=== PATIENT | female | born 2000 | race Caucasian/White ===

== ENCOUNTER 2023-09-23 08:00 | Outpatient (CLI) | payer OTHER ==
[2023-09-23 18:55] LABS: BILIRUBIN,URINE NEGATIVE (NEGATIVE); GLUCOSE, URINE (UA) NEGATIVE (NEGATIVE); KETONES,URINE (UA) TRACE mg/dL (NEGATIVE); LEUKOCYTE ESTERASE, URINE NEGATIVE (NEGATIVE); NITRITE,URINE NEGATIVE (NEGATIVE); OCCULT BLOOD,URINE NEGATIVE (NEGATIVE); PROTEIN,URINE NEGATIVE (NEGATIVE); UROBILINOGEN,URINE 0.2 (NORMAL) E.U./dL (NORMAL)
[2023-09-23 18:59] LABS: CLARITY,URINE CLEAR (CLEAR)
[2023-09-23 19:16] LABS: BACTERIA,URINE Few /HPF (None Seen); RBC,URINE None Seen /HPF (0-5); SQUAMOUS EPITHELIAL CELL,UR FEW Squamous (<= Few); WBC,URINE 0-3 /HPF (0-5)
== END 2023-09-23 23:59 | disposition home or self-care (01) ==
LOC: LAB.WC 08:00
PROVIDERS: ATTEND Obstetrics & Gynecology
DX: Z34.00 Encounter for supervision of normal first pregnancy, unspecified trimester (principal)
CPT/HCPCS: 81001; 87086

== ENCOUNTER 2023-10-15 13:11 | Outpatient (CLI) | payer OTHER ==
--- NOTE | 2023-10-15 22:33 | Ultrasound Report ---
PROCEDURE: OB 1st Trimester INDICATIONS: POSITIVE TEST OUTSIDE/PRIOR DATING DATA: Last menstrual period (LMP): 08/08/2023. LMP-based estimated date of delivery (ABNER): 05/14/2024. First dating scan (date and location): 10/15/2023. Estimated date of delivery (ABNER) from first dating scan: 05/18/2024. TECHNIQUE: Real-time scanning was performed of the fetus and maternal pelvic organs, with image documentation. COMPARISON: None. FINDINGS: Intrauterine gestational sac present. Embryo: Single living intrauterine gestation with estimated sonographic gestational age of approxima tely 9 weeks and 1 day based off crown-rump length measurement of approximately 2.41 cm. Heart rate: 178 bpm. Other: No perigestational fluid collection. Normal yolk sac. Measurement variability in dating: +/- 4 weeks by LMP, +/- 7 days by mean sac diameter (use before 6 weeks gestation if crown-rump length not able to be measured), +/- 5 days by crown-rump length (6-12 weeks gestation). Maternal organs: Ovaries appear within normal limits. IMPRESSION: Single living intrauterine gestation with estimated sonographic gestational age of approximately 9 we eks and 1 day based off crown-rump length measurement. Estimated date of delivery is approximately 05/18/2024. Reviewed by: Steve Chou MD on 10/15/2023 10:32 PM PDT Approved by: Steve Chou MD on 10/15/2023 10:32 PM PDT Station ID: [id number]
== END 2023-10-15 13:12 | disposition home or self-care (01) ==
LOC: DI 13:11
PROVIDERS: ATTEND Obstetrics & Gynecology
DX: Z34.01 Encounter for supervision of normal first pregnancy, first trimester (principal)

== ENCOUNTER 2023-10-21 08:00 | Outpatient (CLI) | payer OTHER ==
[2023-10-21 20:51] LABS: CHLAMYDIA TRACHOMATIS DNA NEGATIVE (NEGATIVE); NEISSERIA GONORRHOEAE DNA NEGATIVE (NEGATIVE); TRICHOMONAS VAGINALIS DNA NEGATIVE (NEGATIVE)
== END 2023-10-21 23:59 | disposition home or self-care (01) ==
LOC: LAB.WC 08:00
PROVIDERS: ATTEND Obstetrics & Gynecology
DX: Z11.3 Encounter for screening for infections with a predominantly sexual mode of transmission (principal)
CPT/HCPCS: 87491; 87591; 87661

== ENCOUNTER 2023-11-09 08:23 | Outpatient (CLI) | payer OTHER ==
[2023-11-09 12:21] LABS: BASOPHILS # (AUTO) 0.1 10^3/uL (0.0-0.1); BASOPHILS % (AUTO) 0.8 %; EOSINOPHILS # (AUTO) 0.1 10^3/uL (0.0-0.7); EOSINOPHILS % (AUTO) 1.4 %; HCT - HEMATOCRIT 39.2 % (37.0-47.0); HGB - HEMOGLOBIN 13.4 g/dL (12.0-16.0); LYMPHOCYTES % (AUTO) 28.5 %; MEAN CORPUSCULAR HEMOGLOBIN 29.5 pg (27.0-31.0); MEAN CORPUSCULAR HGB CONC 34.2 g/dL (32.0-36.0); MEAN CORPUSCULAR VOLUME 86.3 fL (81.0-99.0); MONOCYTES # (AUTO) 0.5 10^3/uL (0.0-1.0); NEUTROPHILS # (AUTO) 4.4 10^3/uL (1.5-6.6); PLT - PLATELET COUNT 238 10^3/uL (130-450); RED BLOOD COUNT 4.54 10^6/uL (4.20-5.40); RED CELL DISTRIBUTION WIDTH 13.2 % (12.0-15.0); WHITE BLOOD COUNT 7.1 x10^3/uL (4.8-10.8)
[2023-11-10 01:08] LABS: HIV SCREEN 4TH GENERATION Non Reactive (Non Reactive)
[2023-11-10 04:11] LABS: HBsAG SCREEN Negative (Negative); RPR Non Reactive (Non Reactive)
[2023-11-10 12:10] LABS: VARICELLA-ZOSTER AB IGG 1042 index (Immune >165)
== END 2023-11-09 08:24 | disposition home or self-care (01) ==
LOC: LAB.N 08:23
PROVIDERS: ATTEND Obstetrics & Gynecology
DX: Z34.00 Encounter for supervision of normal first pregnancy, unspecified trimester (principal); Z36.89 Encounter for other specified antenatal screening
CPT/HCPCS: 36415; 85025; 86592; 86762; 86787; 86803; 86850; 86900; 86901; 87340; 87389

== ENCOUNTER 2023-12-04 08:32 | Outpatient (CLI) | payer OTHER ==
[2023-12-07 15:09] LABS: AFP MOM 0.86 (.); AFP VALUE 27.5 ng/mL (.); DIA MOM 0.67 (.); DIA VALUE 94.02 pg/mL (.); DSR (BY AGE) 1 IN 1116 (.); DSR (SECOND TRIMESTER) 1 IN 10000 (.); GEST. AGE ON COLLECTION DATE 16.4 WEEKS (.); HCG MOM 0.49 (.); HCG VALUE 16105 mIU/mL (.); INSULIN DEP DIABETES No (.); MATERNAL AGE AT EDD 22.5 yr (.); MULTIPLE GESTATION No (.); OPEN SPINA BIFIDA RISK 1 IN 10000 (.); RACE Caucasian (.); RESULTS Report (.); TEST RESULTS *Screen Negative* (.); TRISOMY 18 RISK Not increased (.); WEIGHT 176 lbs (.)
== END 2023-12-04 08:33 | disposition home or self-care (01) ==
LOC: LAB.N 08:32
PROVIDERS: ATTEND Obstetrics & Gynecology
DX: Z36.89 Encounter for other specified antenatal screening (principal)
CPT/HCPCS: 36415; 81511

== ENCOUNTER 2023-12-28 09:27 | Outpatient (CLI) | payer OTHER ==
--- NOTE | 2023-12-28 14:53 | Ultrasound Report ---
PROCEDURE: OB Anatomy Scan INDICATIONS: SUPERVISION OF OUTSIDE/PRIOR DATING DATA: Last menstrual period (LMP): 08/08/2023. LMP-based estimated date of delivery (ABNER): 05/14/2024. First dating scan (date and location): 10/15/2023. Estimated date of delivery (ABNER) from first dating scan: 05/18/2024. The below data below was generated using the ultrasound ABNER of 05/18/2024 TECHNIQUE: Real-time scanning was performed of the fetus, with image documentation and biometric measurements. Endovaginal scanning: Not performed. COMPARISON: 10/15/2023 FINDINGS: General: A single living intrauterine gestation is present. Presentation: Vertex Placenta: Placental position is anterior, without previa. Amniotic fluid index: 13.6 cm, within normal limits for gestational age. heart rate: 153 beats per minute. Maternal cervical canal: 3.9 cm long; normal length is 2.5 cm or more. biometrics: Biparietal diameter: 4.7 cm, 20 weeks 1 day, 67% Head circumference: 16.9 cm, 19 weeks 4 days, 33% Abdominal circumference: 14.2 cm, 19 weeks 4 days, 40% Femur length: 3.1 cm, 19 weeks 5 days, 41% Estimated gestational age from initial scan: 19 weeks 5 days Composite gestational age from present scan: 19 weeks 4 days Estimated weight and percentile: 304 g, 41% Measurement variability in biometric dating: +/- 10 days from 12-20 weeks gestation, +/- 2 weeks from 20-30 weeks gestation, +/- 3 weeks at 30 weeks gestation or later. Anatomic survey: Neuro: Ventricles are normal at less than 10 mm. Cisterna magna is normal at 3-11 mm. Cerebellum i s normal in size and morphology. Nuchal skin fold: Normal at less than 6 mm between 14 and 20 weeks gestational age. Face: Nose and lips, facial profile are normal. Spine: No evidence for spina bifida. Heart: 4-chambered heart is present, with normal ventricular outflow tracts. Diaphragm: Diaphragm is intact. Stomach: Left-sided stomach is present. Kidneys: No hydronephrosis. Normal is less than 5 mm in 2nd trimester, less than 7 mm in 3rd trimester. Cord: 3 vessel cord has orthotopic insertion. Bladder: Normal in size. Extremities: All 4 extremities are visualized. IMPRESSION: 1.Single live intrauterine consistent with 19 weeks and 4 days. 2.Normal anatomic survey. Reviewed by: Joey Uriarte MD on 12/28/2023 2:51 PM PDT Approved by: Joey Uriarte MD on 12/28/2023 2:51 PM PDT Station ID: [id number]
== END 2023-12-28 09:28 | disposition home or self-care (01) ==
LOC: DI 09:27
PROVIDERS: ATTEND Obstetrics & Gynecology
DX: Z34.02 Encounter for supervision of normal first pregnancy, second trimester (principal)

== ENCOUNTER 2024-05-15 07:54 | Inpatient (IN) ==
[2024-05-15] MEDS ORDERED: lidocaine 1% 20 ML MDV ID PRN (08:06)
[2024-05-15] MEDS ORDERED: OXYTOCIN/SODIUM CHLORIDE 500 ML IV PRN (08:06)
[2024-05-15] MEDS ORDERED: miSOPROStoL 200 MCG TABLET BC PRN (08:06)
[2024-05-15] MEDS ORDERED: miSOPROStoL 200 MCG TABLET PR PRN (08:06)
[2024-05-15] MEDS ORDERED: ACETAMINOPHEN 500 MG TABLET PO PRN (08:06)
[2024-05-15] MEDS ORDERED: SODIUM CHLORIDE FLUSH 0.9% 10 ML SYRINGE IVP PRN (08:06)
[2024-05-15] MEDS ORDERED: TERBUTALINE 1 MG/ML VIAL SUBQ PRN (08:06)
[2024-05-15] MEDS ORDERED: METHYLERGONOVINE 0.2 MG/ML VIAL IM PRN (08:06)
[2024-05-15] MEDS ORDERED: hydrALAZINE INJ 20 MG/ML VIAL IVP PRN (08:06)
[2024-05-15] MEDS ORDERED: TRANEXAMIC ACID IN NACL 1,000 MG/100 ML BAG IV PRN (08:06)
[2024-05-15] MEDS ORDERED: OXYTOCIN 10 UNIT/ML VIAL IM PRN (08:06)
[2024-05-15] MEDS ORDERED: LABETALOL 20 MG/4 ML SYRINGE IVP PRN ×3 (08:06)
[2024-05-15] MEDS ORDERED: NIFEdipine 10 MG CAPSULE PO PRN (08:06)
[2024-05-15 08:37] LABS: BASOPHILS # (AUTO) 0.1 10^3/uL (0.0-0.1); BASOPHILS % (AUTO) 0.5 %; EOSINOPHILS # (AUTO) 0.1 10^3/uL (0.0-0.7); EOSINOPHILS % (AUTO) 0.8 %; HCT - HEMATOCRIT 35.3 % (37.0-47.0); HGB - HEMOGLOBIN 11.7 g/dL (12.0-16.0); LYMPHOCYTES # (AUTO) 2.9 10^3/uL (1.5-3.5); LYMPHOCYTES % (AUTO) 23.8 %; MEAN CORPUSCULAR HEMOGLOBIN 28.5 pg (27.0-31.0); MEAN CORPUSCULAR HGB CONC 33.1 g/dL (32.0-36.0); MEAN CORPUSCULAR VOLUME 85.9 fL (81.0-99.0); MONOCYTES # (AUTO) 1.1 10^3/uL (0.0-1.0); MONOCYTES % (AUTO) 8.6 %; NEUTROPHILS # (AUTO) 8.1 10^3/uL (1.5-6.6); NEUTROPHILS % (AUTO) 65.9 %; PLT - PLATELET COUNT 226 10^3/uL (130-450); RED BLOOD COUNT 4.11 10^6/uL (4.20-5.40); RED CELL DISTRIBUTION WIDTH 13.2 % (12.0-15.0); WHITE BLOOD COUNT 12.3 x10^3/uL (4.8-10.8)
[2024-05-15] MEDS ORDERED: SODIUM CHLORIDE FLUSH 0.9% 10 ML SYRINGE IVP SCH (09:00)
[2024-05-15] MEDS: LACTATED RINGERS 1,000 ML IV PRN (09:23)
[2024-05-15] MEDS: OXYTOCIN/SODIUM CHLORIDE 500 ML IV SCH (09:24)
--- NOTE | 2024-05-15 09:24 | HISTORY & PHYSICAL EXAMINATION ---
Admit History Smoking Status: Never smoker Other Maternal History Other Maternal History: HPI: Patient is a 23-year-old at 40 weeks 1 day gestation admitted for induction of labor at term.. She has good movement. Denies loss of fluid. No LOCKETT/BV or RUQP. No vaginal bleeding. Denies nausea and vomiting. Denies urinary urgency or dysuria. All other symptoms reviewed and were negative except per HPI. Course LMP: 08/08/2023 ABNER by LMP: 05/14/2024 US:10/15/23@ 9+6 ABNER by US 05/18/24 Final ABNER: 05/14/24 FOB [facility] in [employer]. . both from [place], [place]. 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 Gabby's mom coming on 05/11 with all of her siblings to be here around delivery (staying in [facility] until Jun 01) H/o anomaly - medical termination with 2nd , reports hydrocephalus was told baby would likely have cardiac anomaly. They did not remember what results of genetic testing revealed. Reports seeing genetic counselor and was told is was a random event without increased risk for next . - Records reviewed 12/15, early US with cystic hygroma, bilateral pleural effusions, and suspected atrioventricular septal defect. Declined diagnostic testing and underwent termination. 01/21/24 - rash on face 23 weeks labs ordered to check for Parvo with 28 week labs. IgM (1 week to 3 m) and IgG (2 weeks to forever) will both be positive if new infection. Lab didn't draw with 28wk labs, given order form on 03/07 so she can go to lab. H/o anxiety/dep/ADHD - no meds, doing well at first visit. Pre- Weight: 182 BMI: 28.41 Blood type: A+ Antibody: Negative CBC: H/H 13.4/39.2 plt 238 RUB:immune VZV:immune HBsAg: Negative HepC: NR RPR/AB-EIA: NR HIV: NR PAP:07/09/2023 Normal per pt GC/CT: Negative HSV: denies Genetic testing: quad neg Covid:vaccinated Flu: 02/18/24 FAS: Placenta: Anterior w/o previa Cord:3VC ANGEL:13.6 WNL EFW:304g 41st%ile 50gm OGCT: 124 TDAP: 02/17 Breast Pump: 02/17 RPR- NR 3rd trimester H/H 12.3/36.1 PLT 250 3rd trimester HIV GBS: collected 04/22 Contraception: copper IUD at 6wk visit HPI Current : Vital Signs Temperature 36.8 C 05/15/24 08:12 Pulse Rate 113 H 05/15/24 08:12 Respiratory Rate 16 05/15/24 08:12 Blood Pressure 137/89 H 05/15/24 08:12 O2 Saturation 96 05/15/24 08:12 Meds/Allgy Home Medications Ambulatory Orders Medication Instructions Recorded Confirmed prenat.vits,guillermina,wgc-lwae-tsgrs tab PO 02/23/24 05/13/24 Allergies Allergies Allergy/AdvReac Type Severity Reaction Status Date / Time No Known Drug Allergies Allergy Verified 04/27/24 13:34 PFSH Medical History Medical History (Updated 05/15/24 @ 09:21 by Peter Saha MD) Plantar wart, left foot (10/14/23) Surgical History Surgical History (Updated 02/23/24 @ 15:25 by Radha Feng MA) History of laparoscopy Ruptured ovarian cyst (2019) Family History Family History (Updated 04/06/24 @ 20:45 by Jordyn Duggan MD) Grandmother Ovarian cancer Sister Asthma Mental disorder Grandfather Diabetes Mother Mental disorder Father Mental disorder Alcoholism Social History Social History (Updated 02/23/24 @ 17:08 by Jordyn Duggan MD) Smoking Status: Never smoker Do you dip or chew tobacco?: No Do you vape?: No Living arrangement: At home Marital Status: Living Condition: With spouse/s.o. Support Person: Yes Relationship: Spouse Level: Independent ETOH Use: None Substance Use: denies use Are you sexually active?: Yes Control Method: None Physical Abdominal Exam Vital Signs: Temp Pulse Resp BP Pulse Ox 36.8 C 113 H 16 137/89 H 96 05/15/24 08:12 05/15/24 08:12 05/15/24 08:12 05/15/24 08:12 05/15/24 08:12 Vaginal Exam Dilation (in cm): 3 Effacement (%): 70 Station: positive -2 Other Notes Labor Progress Note/Additional Text: General: Alert, oriented, no acute distress Head: Normal cephalic atraumatic Eyes: PERRLA, extraocular motions intact. Respiratory: Normal rate of respiration. No accessory muscle use, normal respiratory effort. Cardiovascular: Regular rate and rhythm Abdomen: Gravid, nontender, nondistended Extremities: Normal range of motion Neuro: Oriented x3. Normal movements Psych: Appropriate mood and affect. Normal judgment and insight SVE: 3/70/-2 FHT: 140 beats per baseline, moderate variability, accelerations present, no decelerations. Category 1. [place]: Irregular Plan for Labor Plan For Labor I expect patient to be DC'd or transferred within 96 hours.: Yes Conclusion/Plan Problem List (1) Encounter for induction of labor: Plan: Admit to L&D, admit labs, epidural at patient's request. Cervix favorable with a Means score of 7. Will start oxytocin for induction. Membranes swept at time of exam. Anticipate amniotomy. Anticipate . Counseled on the risk, benefits, alternatives of induction of labor. (2) 40 weeks gestation of : (3) Supervision of normal first in third trimester: Lab Results 05/15/24 08:20
--- NOTE | 2024-05-15 12:11 | PHARMACY PROGRESS NOTE ---
Best Possible Medication History Admit Date and Time: 05/15/24 [id number] Home Medications Medication Instructions Recorded Confirmed Type prenat.vits,guillermina,oyy-ugax-soxgr 1 tab PO DAILY 02/23/24 05/15/24 History Processed by: Nursing (Called and spoke with nursing staff, as only prenatals pulling in on insurance record. Nursing confirmed that patient is only taking vitamins at home.) Medications reviewed in ED?: No Medication History completed: Yes Secondary Source(s): Insurance records [facility] Statement: As the person ultimately responsible for medication therapy, providers are able to order a medication from an existing home medication list in [facility] via the "Reconcile Routine" prior to Confirmation of that medication by technical support analyst. Such practice is discouraged except when the physician, in their clinical judgment, deems that a medical need exists for a medication without regard to previous use.
--- NOTE | 2024-05-15 14:16 | PROVIDER PROGRESS NOTE ---
Labor Progress Note Uterine Monitoring Uterine Monitoring Mode: positive External toco Contraction Frequency (min/apart): 2 Contraction Intensity: positive Mild to moderate Monitoring Monitor Mode: positive External ultrasound Heart Rate Baseline: 125 Heart Rate Variability: positive Moderate (6-25 bmp) Accelerations: positive Present, 15x15 Decelerations: positive None Strip Review: positive Category I Vaginal Exam Dilation (in cm): 4 Effacement (%): 70 Station: -2 Cervical Position: Midposition Labor Progress Note Labor Progress Note/Additional Text: Discussed amniotomy and patient consents. Performed easily with a moderate amount of clear fluid. Patient and fetus tolerated well. Will continue oxytocin augmentation at this time.
[2024-05-15] MEDS: fentaNYL 100 MCG/2 ML VIAL IVP PRN (17:55)
[2024-05-15] MEDS ORDERED: WITCH HAZEL/GLYCERIN 1 PAD TOP PRN (19:14)
[2024-05-15] MEDS ORDERED: CALCIUM CARBONATE CHEW 500 MG TABLET PO PRN (19:14)
[2024-05-15] MEDS ORDERED: SIMETHICONE CHEW 80 MG TABLET PO PRN (19:14)
[2024-05-15] MEDS ORDERED: ONDANSETRON 4 MG/2 ML VIAL IVP PRN (19:14)
--- NOTE | 2024-05-15 19:17 | DELIVERY NOTE ---
Delivery Note Labor Labor: positive Induced by oxytocin Infant Delivery Method Delivery Method: positive Spontaneous vaginal delivery Presentation Presentation: positive Vertex Nuchal Cord Nuchal Cord: positive Present and Reduced Amniotic Fluid Description Amniotic Fluid Description: positive Clear Laceration Laceration: positive 1st degree and Labial (Right) Delivery Outcome Delivery Date: 05/15/24 Delivery Time: 07:02 Delivery Outcome: positive Livebirth Makinen: positive Placed in direct skin contact with mother Makinen sex: positive Male Cord Cord: positive 3 vessels Placenta Placenta: positive Intact Estimated Blood Loss Estimated Blood Loss (in cc): 150 Post Delivery Events Post Delivery Events: positive No post delivery events Delivery Comments (Free Text/Narrative) Delivery Comments (Free Text/Narrative): Preoperative Diagnoses 40 weeks gestation Induction of labor Postoperative Diagnoses Same Status post spontaneous vaginal delivery Delivery of live lamb Summary Patient was admitted at 40 weeks 1 day gestation for induction of labor. Her cervix was favorable and was started on oxytocin for induction. She progressed to 4 cm had amniotomy performed with clear fluid. She used nitrous oxide intermittently for labor, but otherwise unmedicated. She progressed quickly in the active labor stage until complete and pushing. Delivery Summary: Patient was placed in the dorsal right position. Upon maternal pushing the head was delivered atraumatically followed by the anterior shoulder, posterior shoulder, then the remainder of the 's body. Nuchal cord was reduced. A male infant was delivered with APGARS of 8 at 1 minute and 9 at 5 minutes. The infant was placed on its mother's chest . After the cord finished pulsating, the umbilical cord was clamped times two and cut. The placenta delivered intact with three vessel cord. Placenta was not sent to pathology. Thirty units of Pitocin were added to the IV fluid and allowed to run freely. Uterine massage was performed until uterus was deemed firm. Upon inspection of the perineum, a right labial laceration and a small first- degree laceration were noted. These were hemostatic and does not require sutures. Upon re-inspection the patient was hemostatic. Uterus again massaged and found to be firm. Needle and sponge counts were correct. Patient was stable and allowed to recover in L&D room. Infant was stable and remained in room with mother. weight is pending at this time.
[2024-05-15] MEDS ORDERED: LACTATED RINGERS 1,000 ML IV SCH (20:00)
[2024-05-16] MEDS: IBUPROFEN 600 MG TABLET PO SCH (00:10)
[2024-05-16] MEDS: ACETAMINOPHEN 500 MG TABLET PO SCH (00:11)
[2024-05-16 08:57] VITALS: O2SAT 98
--- NOTE | 2024-05-16 11:24 | Discharge Summary ---
Discharge Summary Admit Date: 05/15/24 Discharge Date: 05/16/24 Discharging Provider: Valeria Nickerson MD [facility] History of Present Illness: Admission Diagnosis: - SIUP at 40w1d - H/o anxiety/depression/ADHD - Rh + - Rubella immune - Varicella immune Discharge Diagnosis: - Same, delivered Procedures: , 150cc Hospital Course: Gabby presented for elective IOL at 40w1d. She underwent pitocin augmentation followed by AROM and had an uncomplicated . course uncomplicated. Condition on Discharge: SUBJECTIVE: She feels WELL. Pain is WELL controlled with current medications. The baby is doing well. Baby is feeding via . She is ambulating well, tolerating normal diet, urinating without difficulty. Lochia is reported as like a period. OBJECTIVE: Vital signs reviewed GENERAL: NAD CHEST: non labored respirations ABD: soft, non tender, fundus firm EXT: no lower extremity edema; No evidence of DVT LAB & IMAGING STUDIES: See below PLAN: Plan for discharge home with follow up in 1 week, OK for virtual visit if she desires. Reviewed home care instructions and medications. Patient counseled regarding signs and symptoms of infection, excessive bleeding, vaginal rest and activity restrictions. Contraceptive plans to be formalized at visit, currently planning for Paragard IUD at 6wk visit. Discussed that additional support is available in our clinic if needed. ALLERGIES Allergies Allergy/AdvReac Type Severity Reaction Status Date / Time No Known Drug Allergies Allergy Verified 04/27/24 13:34 MEDICATIONS Ambulatory Orders Medication Instructions Recorded Confirmed prenat.vits,guillermina,xqb-vhbt-mwsrd 1 tab PO DAILY 02/23/24 05/15/24 LABS 05/15/24 08:20 TIME SPENT Time Spent in Discharge (Minutes): 20 Discharge Plan Discharge Patient Disposition: Home, Self Care Prescriptions: Continued prenat.vits,guillermina,zoj-taee-qiqlo Tablet 1 tab PO DAILY Print Language: Guinean Patient Instructions: Vaginal After, Childbirth Breast Care, Depression , Change Expect Parents
[2024-05-16] MEDS: BENZOCAINE/MENTHOL LOZENGE MM PRN (16:53)
[2024-05-16 17:08] VITALS: BP 139/79; TEMP 97.9
--- NOTE | 2024-05-16 19:28 | Labor Flowsheet ---
Labor Flowsheet Datetime Report Generated by CPN: 05/16/2024 19:28 Datetime: 05/16/2024 16:32 VITAL SIGNS NBP Sys/Rajni/Mean (mmHg): 139 : 79 : 92 Pulse: 85 Datetime: 05/15/2024 23:49 SpO2 (%): 96 Datetime: 05/15/2024 19:28 Stage of : Recovery Datetime: 05/15/2024 19:15 LaborFlag: OB Triage Datetime: 05/15/2024 19:04 Membranes Ruptured Date/Time: 05/15/2024 13:32 Datetime: 05/15/2024 19:02 UTERINE ACTIVITY Monitor Mode: External Frequency (min): 1-1.5 Duration (sec): 50-60 Pattern: Normal: <= 5 Contractions in 10 Minutes Resting Tone (Palpate): Relaxed FHR Baseline Changes: No Baseline Change Variability: Moderate 6-25 bpm Accelerations: 15X15 Decelerations: None Category: Category I Datetime: 05/15/2024 18:43 STAGE 2 Pushing: Urge to Push Pushing Position: Pushing with Contractions Pushing Progress: Descent with Pushing Datetime: 05/15/2024 18:30 COMMUNICATION Communication: Provider at Bedside Communication Comments: Dr Yifan Datetime: 05/15/2024 18:25 VAGINAL EXAM Dilatation (cm): 10.0 Effacement (%): 100 Station: 2 Exam by: [email or web address] Datetime: 05/15/2024 18:15 FHR Baseline Rate : 125 Datetime: 05/15/2024 17:55 Analgesics/Sedatives: Fentanyl (mcg) @ 50mcg IVP Datetime: 05/15/2024 17:51 Medication Comments: nitros discontinued per patient. would like IV fentanyl instead. Datetime: 05/15/2024 17:50 PAIN Pain Scale: 9 Pain Type: Cramping Pain Location: Abdomen Datetime: 05/15/2024 17:00 ASSESSMENT A Monitor Mode: External US Datetime: 05/15/2024 16:42 Temperature (C): 37.0 Datetime: 05/15/2024 14:59 Patient Care Comments: hands knees Datetime: 05/15/2024 14:51 Pain Coping: Breathing Through Contractions Datetime: 05/15/2024 14:15 Comments: maternal heart recorded due to mothers positioning Patient Position/Activity: Birthing Ball Datetime: 05/15/2024 14:07 Hygiene: Stephanie Care; Underpad Changed; Peripad Changed I/O Interventions: Up to BR Datetime: 05/15/2024 13:32 Membrane Status: Ruptured Membranes Rupture Method: Artificial Amniotic Fluid Color: Clear Amniotic Fluid Amount: Small Datetime: 05/15/2024 13:15 Pain Goal: 7 Datetime: 05/15/2024 13:13 MEDICATIONS Pitocin (milliunits): Increased to @ 13 Datetime: 05/15/2024 12:40 Pain Assessment Comments: contractions unchanged Datetime: 05/15/2024 12:04 Vital Sign Comments: mom moving during bp cycle. BP done again. Datetime: 05/15/2024 10:28 Pitocin Checklist: At Least 1 Acceleration of 15 bpm x 15 Seconds in 30 Minutes or Adequate Variabi lity; No More than 1 Late Deceleration Occurred in Past 30 Minutes; No More than 2 Variable Decelerat ions > 60 Seconds in Duration and decreasing >60 bpm in 30 minutes; No More than 5 Uterine Contractio ns in 10 Minutes for any 20 Minute Interval; Uterus Palpates Soft between Contractions Datetime: 05/15/2024 10:14 Monitor Interventions for FHR: Ultrasound Adjusted Datetime: 05/15/2024 09:56 Quality: Moderate Datetime: 05/15/2024 09:45 Contraction Comments: uterine irritability Datetime: 05/15/2024 08:20 PATIENT CARE IV/Blood Work: IV Started; Labs Drawn with IV Start Datetime: 05/15/2024 08:17 TEACHING Instructional Method: Verbal Plan of Care: Plan of Care Discussed; Vaginal Delivery; Labor; Induction Unit Routine: [place] to Room; Call [place]; Bed; Waiting Areas; Phone/Cell Phone Use; Unit Personnel; Handwashing; Monitoring; Safety/Fall Risk Prevention; Diet/Nutrition Services; Bathroom Privile ges; Medications Labor/Induction: Labor Stages; Augmentation; Induction; Meconium; Pushing Methods Pain Management: Pain Scale/Goals; Comfort Measures Medications: IV Narcotics; Cervical Ripening; Pitocin Related: Common Discomforts of ; Maternal Physical Changes; Nutrition; Activity and Rest
== END 2024-05-16 19:27 | disposition home or self-care (01) | DRG 807 ==
LOC: WFO 07:54 → FBP 07:59
PROVIDERS: ADMIT Obstetrics & Gynecology; ATTEND Obstetrics & Gynecology
DX: O99.343 Other mental disorders complicating pregnancy, third trimester; O69.81X0 Labor and delivery complicated by cord around neck, without compression, not applicable or unspecified; O70.0 First degree perineal laceration during delivery; Z3A.40 40 weeks gestation of pregnancy; Z37.0 Single live birth; Z87.59 Personal history of other complications of pregnancy, childbirth and the puerperium; F90.9 Attention-deficit hyperactivity disorder, unspecified type